=== PATIENT | male | born 1960 | race Two or more races ===

== ENCOUNTER 2021-11-12 15:13 | Emergency (ER) | payer OTHER ==
[~2021-11-12] VITALS: Ht 162.6 cm; Wt 68.0 kg
[2021-11-12] MEDS ORDERED: ULTRAM50 MG PO (15:22)
[2021-11-12] MEDS ORDERED: DICLOFENAC-MIS1 EAC3 PO (15:22)
== END 2021-11-12 18:58 | disposition home or self-care (01) ==
LOC: ER 15:13
DX: L03.114 Cellulitis of left upper limb (principal)